=== PATIENT | female | born 1995 | race African-American/Black ===

== ENCOUNTER 2020-01-28 06:46 | Day surgery (SDC) | payer OTHER ==
[~2020-01-28 06:46] MED LIST: Lactated Ringers 1,000 ML IV SCH; Sodium Chloride 0.9% 10 ML SDV IV PRN; Sodium Chloride 0.9% 10 ML Syringe FLUSH PRN; Sodium Chloride 0.9% 2.5 ML Syringe FLUSH PRN
[2020-01-28] MEDS ORDERED: Ondansetron 4 MG/2 ML SDV ONE (07:16)
[2020-01-28] MEDS ORDERED: Dexamethasone 4 MG/ML 5 ML MDV ONE (07:16)
[2020-01-28] MEDS ORDERED: Midazolam 1 MG/ML 2 ML SDV ONE (07:17)
[2020-01-28] MEDS ORDERED: fentaNYL 250 MCG/5 ML SDV ONE (07:17)
[2020-01-28] MEDS ORDERED: Propofol 200 MG/20 ML SDV ONE (07:17)
--- NOTE | 2020-01-28 08:28 | PCM.PREANE ---
Preanesthetic Assessment - Anesthesia/Transfusion/Family Hx Anesthesia History: No Prior Anesthesia Family History of Anesthesia Reaction: No Transfusion History: No Prior Transfusion(s) - Review of Systems General: No Symptoms Pulmonary: No Symptoms Cardiovascular: No Symptoms Gastrointestinal: No Symptoms Neurological: No Symptoms Other: Reports: None - Physical Assessment NPO Status Date: 01/27/20 Height: 5 ft 3.5 in Weight: 107.955 kg ASA Class: 2 Mental Status: Alert & Oriented x3 Airway Class: Mallampati = 2 Dentition: Reports: Normal Dentition ROM/Head Extension: Full Lungs: Clear to Auscultation, Normal Respiratory Effort Cardiovascular: Regular Rate, Regular Rhythm - Lab Values: Laboratory Last Values SARS Virus RNA (PCR) NEGATIVE (NEGATIVE) 01/28/20 06:55 - Allergies Allergies/Adverse Reactions: Allergies Allergy/AdvReac Type Severity Reaction Status Date / Time mushroom Allergy Cannot Verified 01/15/20 09:54 Remember - Blood Blood Available: No - Anesthesia Plan Pre-Op Medication Ordered: None - Acknowledgements Anesthesia Type Planned: General Anesthesia Pt an Appropriate Candidate for the Planned Anesthesia: Yes Alternatives and Risks of Anesthesia Discussed w Pt/Guardian: Yes Pt/Guardian Understands and Agrees with Anesthesia Plan: Yes Additional Comments: PMH: smoker, PCOS PLAN: ga/lma PreAnesthesia Questionnaire HEENT History: Reports: Other (See Below) Other HEENT History: wears glasses/contacts [place] [facility] History: Reports: Polycystic Ovaries Endocrine/Metabolic History: Reports: Obesity/BMI 30+ - Past Surgical History Head Surgeries/Procedures: Reports: None - SUBSTANCE USE Smoking Status *Q: Current Every Day Smoker Tobacco Use Within Last Twelve Months: Cigarettes Recreational Drug Use History: Yes - HOME MEDS Home Medications: Home Meds metFORMIN [Glucophage] 500 mg PO DAILY 01/15/20 [History] - CURRENT (IN HOUSE) MEDS Current Meds: Current Medications Lactated Ringer's (Ringers, Lactated) 1,000 mls @ 125 mls/hr IV ASDIRECTED KARLENE Sodium Chloride (Saline Flush) 10 ml FLUSH ASDIRECTED PRN PRN Reason: Keep Vein Open Sodium Chloride (Saline Flush) 2.5 ml FLUSH ASDIRECTED PRN PRN Reason: Keep Vein Open Sodium Chloride (Normal Saline) 10 ml IV ASDIRECTED PRN PRN Reason: IV Use Discontinued Medications Dexamethasone (Dexamethasone) Confirm Administered Dose 20 mg .ROUTE .STK-MED ONE Stop: 01/28/20 07:17 Fentanyl (Sublimaze) Confirm Administered Dose 250 mcg .ROUTE .STK-MED ONE Stop: 01/28/20 07:18 Midazolam HCl (Versed 1 Mg/Ml) Confirm Administered Dose 2 mg .ROUTE .STK-MED ONE Stop: 01/28/20 07:18 Ondansetron HCl (Zofran) Confirm Administered Dose 4 mg .ROUTE .STK-MED ONE Stop: 01/28/20 07:17 Propofol (Diprivan 20 Ml) Confirm Administered Dose 200 mg .ROUTE .STK-MED ONE Stop: 01/28/20 07:18 Sodium Chloride (Saline Flush) 10 ml FLUSH ASDIRECTED PRN PRN Reason: Keep Vein Open Sodium Chloride (Saline Flush) 2.5 ml FLUSH ASDIRECTED PRN PRN Reason: Keep Vein Open Sodium Chloride (Normal Saline) 10 ml IV ASDIRECTED PRN PRN Reason: IV Use
--- NOTE | 2020-01-28 11:15 | PCM.OPNOTE ---
- General Post-Op/Procedure Note Date of Surgery/Procedure: 01/28/20 Operative Procedure(s): Operative hysteroscopy with polypectomies. Fractional dilation and curretage Findings: Multiple polyps in endometrial cavity Pre Op Diagnosis: menometrorrhagia Post-Op Diagnosis: Same Anesthesia Technique: General LMA Primary Surgeon: Mercedes Ruiz Fluid Replacement, Intraop: 1,200 (fluid deficit 205 ml NS) EBL in mLs: 5 Complications: none known Condition: Good Free Text/Narrative:: Dictation [id number]
[2020-01-28] MEDS ORDERED: Acetaminophen 1,000 MG in Premix Bag 1 BAG IV ONE (11:42)
--- NOTE | 2020-01-28 15:52 | OR ---
SURGEON: Mercedes Ruiz M.D. DATE OF PROCEDURE: 01/28/2020 PREOPERATIVE DIAGNOSIS: Menometrorrhagia. POSTOPERATIVE DIAGNOSIS: Menometrorrhagia. PROCEDURE: Operative hysteroscopy, polypectomies, and fractional dilation and curettage. PRIMARY SURGEON: Mercedes Ruiz MD. ANESTHESIA: General LMA. ESTIMATED BLOOD LOSS: 5 mL. COMPLICATIONS: None known. FINDINGS: Multiple endometrial cavity polyps. DISPOSITION: The patient to PACU, stable. INDICATION: Sachin is a 24-year-old nulligravida, who presents with ongoing symptoms of menometrorrhagia. Evaluation with sonohysterogram reveals multiple polypoid lesions within the endometrial cavity. Therefore, discussed with her proceeding with surgical intervention in the form of hysteroscopy and polypectomy. She was agreeable and voices consent to proceed after proper informed consent obtained. DESCRIPTION OF PROCEDURE: The patient was taken to the operating room where she underwent general LMA, was placed in modified dorsal lithotomy position, prepped draped in the usual sterile fashion. Bladder was drained. A time-out was performed. A speculum was introduced in the vagina. The posterior lip of cervix was grasped with an Allis clamp. Cervix tented downward. Hysteroscope was gently introduced using normal saline as distention media. I was able to visualize endocervical canal along the lower uterine segment to the fundal portion of the endometrial cavity. Right ostium and left ostium were able to be visualized. Multiple polypoid lesions were visualized within the endometrial cavity, I suspected majority were along the mid to lower uterine segment. Therefore, photographs were taken of these and MyoSure resection device was now introduced. I was able to resect the polyps to the base. Specimen was sent to pathology. Remainder of the cavity appears normal with no evidence of intracavitary lesions at this point. Hysteroscope was removed. Prior to introducing the hysteroscope, endocervical curetting was performed. At this juncture, gentle curettage of endometrium was now performed. Specimen was sent to pathology for further analysis. Hemostasis appeared evident. All instruments removed from the vagina. Fluid deficit from the hysteroscope was 205 mL normal saline. The instrument and needle count was correct. The patient will go to the PACU in stable condition, specimen to pathology. JANES / AGUSTIN /[id number]
== END 2020-01-28 12:45 | disposition home or self-care (01) ==
LOC: MW.SDS 06:46
PROVIDERS: ATTEND Obstetrics & Gynecology
DX: N84.0 Polyp of corpus uteri (principal); E66.9 Obesity, unspecified; F17.210 Nicotine dependence, cigarettes, uncomplicated; Z01.812 Encounter for preprocedural laboratory examination; Z20.828 Contact with and (suspected) exposure to other viral communicable diseases; Z68.41 Body mass index [BMI] 40.0-44.9, adult
CPT/HCPCS: 36415; 58563; 84703; 85027; 87635; 88305; J0131; J1100; J2250; J2405; J2704; J3010; J7120; 00952; U0002

== ENCOUNTER 2020-01-28 18:30 | Emergency (ER) | payer MEDICAID, OTHER ==
--- NOTE | 2020-01-28 20:12 | EDM.PDOC ---
ED HPI GENERAL MEDICAL PROBLEM - General Chief Complaint: Laceration Stated Complaint: cut on head Time Seen by Provider: 01/28/20 19:30 Source of Information: Reports: Patient History Limitations: Reports: No Limitations - History of Present Illness INITIAL COMMENTS - FREE TEXT/NARRATIVE: HISTORY AND PHYSICAL: History of present illness: Patient is a 24-year-old female who presents to the ED today with concern of scalp laceration that occurred just prior to arrival to the ED. Patient states that she was opening her freezer when a bottle fell out of the freezer and hit her on top of her head. Patient states that the bottle did not break and she did not lose consciousness. Patient states she applied pressure to the area and immediately came to the ED. Patient states she is not sure if she is up-to-date on her tetanus or not but states that she does not want any vaccinations today. Patient denies fever, chills, chest pain, shortness of breath, or cough. Denies headache, neck stiff ness, change in vision, syncope, or near syncope. Denies nausea, vomiting, abdominal pain, diarrhea, constipation, or dysuria. Has not noted any blood in urine or stool. Patient has been eating and drinking appropriately. Review of systems: As per history of present illness and below otherwise all systems reviewed and negative. Past medical history: As per history of present illness and as reviewed below otherwise noncontributory. Surgical history: As per history of present illness and as reviewed below otherwise noncontributory. Social history: See social history for further information Family history: As per history of present illness and as reviewed below otherwise noncontributory. Physical exam: General: Patient is alert, oriented, and in no acute distress. Patient sitting comfortably on exam table. HEENT: There is a 4 cm irregular subcutaneous laceration of the left anterior scalp without bleeding. No crepitus to palpation of this area. Otherwise, atr aumatic, normocephalic, pupils equal and reactive bilaterally, negative for conjunctival pallor or scleral icterus, mucous membranes moist, TMs normal bilaterally, throat clear, neck supple, nontender, trachea midline. No drooling or trismus noted. No meningeal signs. No hot potato voice noted. Lungs: Clear to auscultation, breath sounds equal bilaterally, chest nontender. Heart: S1S2, regular rate and rhythm without overt murmur Abdomen: Soft, nondistended, nontender. Negative for masses or hepatosplenomegaly. Negative for costovertebral tenderness. Pelvis: Stable nontender. Genitourinary: Deferred. Rectal: Deferred. Skin: Intact, warm, dry. No lesions or rashes noted. Extremities: Atraumatic, negative for cords or calf pain. Neurovascular unremarkable. Neuro: Awake, alert, oriented. Cranial nerves II through XII unremarkable. Cerebellum unremarkable. Motor and sensory unremarkable throughout. Exam nonfocal. Notes: Discussed importance for follow-up with a primary care provider. Voices understanding and is agreeable to plan of care. Denies any further questions or concerns at this time. Diagnostics: None (patient declines head CT) Therapeutics: Capitola, (patient declines tetanus vaccine) Prescription: None Impression: Scalp laceration Plan: 1. Keep the area clean and dry. Continue to monitor for signs of infection as discussed. Capitola to be removed in 7-10 days. 2. Tylenol and/or ibuprofen as directed and as needed for pain management and discomfort. 3. Please follow-up with your primary care provider as discussed. Return to the ED as needed and as discussed. Definitive disposition and diagnosis as appropriate pending reevaluation and review of above. 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 Other LABOR RELATIONS CONSULTANT History: recent cyst surgery Musculoskeletal History: Reports: None Neurological History: Reports: None Psychiatric History: Reports: None Endocrine/Metabolic History: Reports: Obesity/BMI 30+ 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 Hematologic History: Reports: None Immunologic History: Reports: None Oncologic (Cancer) History: Reports: None Dermatologic History: Reports: None - Infectious Disease History Infectious Disease History: Reports: None - Past Surgical History Head Surgeries/Procedures: Reports: None HEENT Surgical History: Reports: None Female Surgical History: Reports: None Social & Family History - Family History Family Medical History: Noncontributory - Tobacco Use Smoking Status *Q: Never Smoker - Caffeine Use Caffeine Use: Reports: Soda - Recreational Drug Use Recreational Drug Use: No ED ROS GENERAL - Review of Systems Review Of Systems: Comprehensive ROS is negative, except as noted in HPI. ED EXAM, SKIN/RASH Exam: See Below (see dictation) ED SKIN PROCEDURES - Laceration/Wound Repair Head Appearance: Subcutaneous, Irregular, Clean Distal NVT: Neuro & Vascular Intact, No Tendon Injury Skin Prep: Providone-Iodine (Betadine), Saline Saline Irrigation (cc's): 150 Exploration/Debridement/Repair: Wound Explored, In a Bloodless Field, Explored to Base, No Foreign Material Found Closed with: Ashley Lac/Wound length In cm: 4 # of Sutures: 5 Suture Type: Interrupted Drain Placement: No Sterile Dressing Applied: Nurse Tetanus Status Addressed: Yes (Patient declines) Complications: No Course - Vital Signs Last Recorded V/S: Last Vital Signs Temp 98 F 01/28/20 19:16 Pulse 87 01/28/20 19:16 Resp 18 01/28/20 19:16 BP 133/69 01/28/20 19:16 Pulse Ox 100 01/28/20 19:16 Departure - Departure Time of Disposition: 20:11 Disposition: Home, Self-Care 01 Clinical Impression: Scalp laceration Qualifiers: Encounter type: initial encounter Qualified Code(s): S01.01XA - Laceration wi thout foreign body of scalp, initial encounter - Discharge Information Instructions: Laceration Care, Adult, [id number] Referrals: PCP,None [Primary Care Provider] - Forms: ED Department Discharge Additional Instructions: The following information is given to patients seen in the emergency department who are being discharged to home. This information is to outline your options for follow-up care. We provide all patients seen in our emergency department with a follow-up referral. The need for follow-up, as well as the timing and circumstances, are variable depending upon the specifics of your emergency department visit. If you don't have a primary care physician on staff, we will provide you with a referral. We always advise you to contact your personal physician following an emergency department visit to inform them of the circumstance of the visit and for follow-up with them and/or the need for any referrals to a consulting specialist. The emergency department will also refer you to a specialist when appropriate. This referral assures that you have the opportunity for follow-up care with a specialist. All of these measure are taken in an effort to provide you with optimal care, which includes your follow-up. Under all circumstances we always encourage you to contact your private physician who remains a resource for coordinating your care. When calling for follow-up care, please make the office aware that this follow-up is from your recent emergency room visit. If for any reason you are refused follow-up, please contact the [facility] Emergency Department at and asked to speak to the emergency department charge nurse. [facility] [address] [place] [id number] [facility] [address] [place] [id number] 1. Keep the area clean and dry. Continue to monitor for signs of infection as discussed. Capitola to be removed in 7-10 days. 2. Tylenol and/or ibuprofen as directed and as needed for pain management and discomfort. 3. Please follow-up with your primary care provider as discussed. Return to the ED as needed and as discussed. Sepsis Event Note (ED) - Evaluation Sepsis Screening Result: No Definite Risk - Focused Exam Vital Signs: Vital Signs Temp Pulse Resp BP Pulse Ox 01/28/20 19:16 98 F 87 18 133/69 100
== END 2020-01-28 20:20 | disposition home or self-care (01) ==
LOC: MW.ED 18:30
DX: S01.01XA Laceration without foreign body of scalp, initial encounter (principal); E66.9 Obesity, unspecified; Z79.84 Long term (current) use of oral hypoglycemic drugs; Z91.018 Allergy to other foods
CPT/HCPCS: 12002; 99282

== ENCOUNTER 2020-02-07 15:45 | Emergency (ER) | payer OTHER | END 2020-02-07 16:31 | disposition left against medical advice (07) | LOC: MW.ED 15:45 | DX: Z48.02 Encounter for removal of sutures (principal) | CPT/HCPCS: 99281 ==